=== PATIENT | male | born 1960 | race Caucasian/White ===

== ENCOUNTER → 2017-07-10 | Outpatient (CLI) | payer BC ==
[2016-01-26 12:56] VITALS: BP 138/81
[2017-07-15 06:35] LABS: EPSTEIN-BARR VCA IGG >750.0 U/mL (0.0-21.9); EPSTEIN-BARR VCA IGM <10.0 U/mL (0.0-43.9)
== END ==
LOC: LAB 16:25
PROVIDERS: ATTEND Allergy & Immunology
DX: L50.1 Idiopathic urticaria (principal)
CPT/HCPCS: 36415; 82784; 86663; 86664; 86665; 86695; 86696